=== PATIENT | female | born 1990 | race African-American/Black ===

== ENCOUNTER 2020-04-12 17:36 | Emergency (ER) | payer OTHER, SELFPAY ==
--- NOTE | ~2020-04-12 | XR_ITS ---
EXAMINATION: XR wrist RT min 3V EXAM DATE: 04/12/2020 18:02 INDICATION: Diffuse rt wrist pain s/p bending backwards today . Initial encounter. TECHNIQUE: Right wrist frontal, frontal with ulnar deviation, oblique and lateral projections obtain ed and reviewed. There is no prior study for comparison. FINDINGS: Right wrist scapholunate joint space is maintained. There are no acute fractures or disloca tions identified. There is no subcutaneous gas. The soft tissue is unremarkable. There are no rad iopaque foreign bodies. IMPRESSION: No acute osseous findings. Reviewed, dictated and finalized at location A. IMPRESSION: No acute osseous findings.
[2020-04-12 17:49] VITALS: BP 128/86; PULSE 70; RESP 16; TEMP 36.6; O2SAT 99
[2020-04-12 17:54] VITALS: BP 128/86; PULSE 70; RESP 16; TEMP 36.6; O2SAT 99
--- NOTE | 2020-04-12 18:06 | ED.UPPEXIN ---
HPI - Extremity Injury (Upper) General Chief Complaint: Extremity Injury, Upper Stated Complaint: Right Wrist Pain Time Seen by Provider: 04/12/20 18:00 Source: patient and RN notes reviewed Mode of arrival: ambulatory Limitations: no limitations History of Present Illness HPI narrative: This patient presents today complaining of right wrist pain. She was play wrestling with a sibling this morning and her wrist was bent back. Currently rates her pain 8/10, which increases with movement. Denies numbness or tingling in the wrist or hand. Reports radiation of the pain to the elbow. She has tried no [id number] interventions prior to arrival. MD complaint: injury to: right and wrist Related Data Home Medications Medication Instructions Recorded Confirmed norethindrone-e.estradiol-iron 1 tablet PO DAILY 04/12/20 04/12/20 [Aurovela Fe 1.5/ (28)] Allergies Allergy/AdvReac Type Severity Reaction Status Date / Time No Known Allergies Allergy Verified 04/12/20 17:53 Review of Systems Review of Systems: Narrative: CONSTITUTIONAL: Denies body aches, fever, chills, or sweats. EYES: Denies visual changes, redness, or discharge. ENT: Denies rhinorrhea, congestion, sore throat, or otalgia. CARDIOVASCULAR: Denies chest pain, palpitations, or edema. RESPIRATORY: Denies cough or dyspnea. GASTROINTESTINAL: Denies abdominal pain, nausea, vomiting, or diarrhea. GENITOURINARY: Denies dysuria or hematuria. SKIN: Denies rash, itching, or wounds. MUSCULOSKELETAL: Denies back pain, or myalgia. Right wrist pain NEUROLOGIC: Denies headache, numbness, tingling, or weakness. PSYCH: Denies depression or anxiety. PMFSH Social History Social History Gender identity (if verbalized by the patient): Female Comments At time of signature, I have reviewed and agree with nursing past medical, surgical, social and family history unless otherwise noted. Please see nursing chart for further information. There is no relevant family history pertinent to the presenting complaint Exam Narrative: Exam Narrative: GENERAL: Well-appearing, well-nourished, and in no acute distress. HEAD: Normocephalic, atraumatic. EYES: EOMI. No redness or drainage. Conjunctivae normal. ENT: Mucous membranes pink and moist. NECK: Normal AROM. CHEST: No respiratory distress. EXTREMITIES: Right wrist: Tenderness to the distal radius without ecchymosis, erythema, or edema. Decreased range of motion due to pain. Distal sensation intact. Capillary refill normal. Radial pulse normal. SKIN: Warm, dry, no rash. Capillary refill normal. Normal skin turgor. NEURO: No focal deficits. Alert and oriented x3. Gait steady. PSYCH: Normal affect. No signs of depression or anxiety. Course Vital Signs Vital signs: Vital Signs Temperature 97.8 F 04/12/20 17:49 Pulse Rate 70 04/12/20 17:49 Respiratory Rate 16 04/12/20 17:49 Blood Pressure 128/86 04/12/20 17:49 Pulse Oximetry 99 04/12/20 17:49 Temperature 97.8 F 04/12/20 17:54 Pulse Rate 70 04/12/20 17:54 Respiratory Rate 16 04/12/20 17:54 Blood Pressure 128/86 04/12/20 17:54 Pulse Oximetry 99 04/12/20 17:54 Reviewed. Pt has been instructed to follow up with her PCP regarding her elevated blood pressure today. MDM - Extremity Injury (Upper) Differential Diagnosis Differential diagnosis: Likely sprain and strain of wrist, fracture of wrist and fracture of hand Imaging Data Radiologist's impression: ITS Impressions Wrist X-Ray 04/12/20 18:07 IMPRESSION: No acute osseous findings. Critical Care Time Critical Care Time Critical Care Time: No Discharge Plan Discharge Clinical Impression: Right wrist sprain Qualifiers: Encounter type: initial encounter Qualified Code(s): S63.501A - Unspecified sprain of right wrist, initial encounter Patient Disposition: Home, Self-Care Condition: Stable Instructions: Wrist Sprain (ED) Additional
== END 2020-04-12 18:22 | disposition home or self-care (01) ==
PROVIDERS: Emergency Provider Nurse Practitioner
DX: S63.501A Unspecified sprain of right wrist, initial encounter (principal); X50.9XXA Other and unspecified overexertion or strenuous movements or postures, initial encounter; Y93.83 Activity, rough housing and horseplay; J45.909 Unspecified asthma, uncomplicated; R01.1 Cardiac murmur, unspecified
CPT/HCPCS: 73110; 99213; G0463

== ENCOUNTER 2023-04-08 15:23 | Emergency (ER) | payer OTHER, SELFPAY ==
[2023-04-08 15:31] VITALS: BP 123/67; PULSE 102; RESP 18; TEMP 36.3; O2SAT 98
--- NOTE | 2023-04-08 15:40 | ED.GENADULT ---
HPI - General Adult General Chief complaint: Skin/Abscess/Foreign Body <Tnaya Cadet October, - Last Filed: 04/08/23 15:41> Stated complaint: insect bite to left neck <Tanya Cadet October - Last Filed: 04/08/23 15:41> Time Seen by Provider: 04/08/23 16:12 <Tanya Cadet October, - Last Filed: 04/08/23 15:41> History of Present Illness HPI narrative: Sarina Mckay is a 32 y/o female who presents with reports of maybe a spider bite to her left neck area, she reports area is very itchy, no drainage/ no swelling. Patient also reports she is 22 weeks <Tanya Cadet October, - Last Filed: 04/08/23 15:41> Related Data Home medications: Home Medications Medication Instructions Recorded Confirmed norethindrone 1.5 mg-ethinyl 1 tablet PO DAILY 04/12/20 04/12/20 estradiol 30 mcg(21)/iron 75 mg(7) tablet (Aurovela Fe 1.5/30 (28)) <Tanya Cadet October, - Last Filed: 04/08/23 15:41> Allergies/adverse reactions: Allergies Allergy/AdvReac Type Severity Reaction Status Date / Time No Known Allergies Allergy Verified 04/08/23 15:23 <Tanya Cadet October, - Last Filed: 04/08/23 15:41> PMFSH Social History Social History: Social History Gender identity (if verbalized by the patient): Female <Tanya Cadet October, - Last Filed: 04/08/23 15:41> Exam Narrative: GENERAL: Well-appearing, well-nourished, and in no acute distress. HEAD: Normocephalic, atraumatic. ENT: Mucous membranes moist. NECK: Supple. Shingles rash to the left neck just behind the angle of the mandible. EXTREMITIES: Normal range of motion. No edema. SKIN: Warm, dry, shingles as noted above. No involvement of the ear. NEURO: Alert and oriented x3. PSYCH: Normal mood and affect. <Vipin Warner MD - Last Filed: 04/08/23 16:39> Course Course Emergency Course: Discussed diagnosis and treatment plan with patient. Also discussed case with Dr. Nieves at patient's OB office. Discharged with valacyclovir and prednisone. <Vipin Warner MD - Last Filed: 04/08/23 16:39> Vital Signs Vital signs: Vital Signs Temperature 97.4 F L 04/08/23 15:31 Pulse Rate 102 H 04/08/23 15:31 Respiratory Rate 18 04/08/23 15:31 Blood Pressure 123/67 04/08/23 15:31 Pulse Oximetry 98 04/08/23 15:31 Oxygen Delivery Room Air 04/08/23 15:31 Temperature 97.4 F L 04/08/23 15:31 Pulse Rate 102 H 04/08/23 15:31 Respiratory Rate 18 04/08/23 15:31 Blood Pressure 123/67 04/08/23 15:31 Pulse Oximetry 98 04/08/23 15:31 Oxygen Delivery Room Air 04/08/23 15:31 <Tanya Lambert, [employer] - Last Filed: 04/08/23 15:41> Vital Signs Temperature 97.4 F L 04/08/23 15:31 Pulse Rate 102 H 04/08/23 15:31 Respiratory Rate 18 04/08/23 15:31 Blood Pressure 123/67 04/08/23 15:31 Pulse Oximetry 98 04/08/23 15:31 Oxygen Delivery Room Air 04/08/23 15:31 Temperature 97.4 F L 04/08/23 15:31 Pulse Rate 102 H 04/08/23 15:31 Respiratory Rate 18 04/08/23 15:31 Blood Pressure 123/67 04/08/23 15:31 Pulse Oximetry 98 04/08/23 15:31 Oxygen Delivery Room Air 04/08/23 15:31 <Vipin Warner MD - Last Filed: 04/08/23 16:39> Medical Decision Making Vital Signs Vital Signs: Vital Signs Temperature 97.4 F L 04/08/23 15:31 Pulse Rate 102 H 04/08/23 15:31 Respiratory Rate 18 04/08/23 15:31 Blood Pressure 123/67 04/08/23 15:31 Pulse Oximetry 98 04/08/23 15:31 Oxygen Delivery Room Air 04/08/23 15:31 Temperature 97.4 F L 04/08/23 15:31 Pulse Rate 102 H 04/08/23 15:31 Respiratory Rate 18 04/08/23 15:31 Blood Pressure 123/67 04/08/23 15:31 Pulse Oximetry 98 04/08/23 15:31 Oxygen Delivery Room Air 04/08/23 15:31 <Tanya Lambert, [employer] - Last Filed: 04/08/23 15:41> Vital Signs Temperature 97.4 F L 04/08/23 15:31 Pulse Rate 102 H 04/08/23 15:31 Respiratory Rate 18 04/08/23 15:31 Blood Pressure 123/67
[2023-04-08 16:53] VITALS: BP 127/81; PULSE 89; RESP 16; TEMP 36.8; O2SAT 98
== END 2023-04-08 16:50 | disposition home or self-care (01) ==
LOC: ANHED 16:43
PROVIDERS: Emergency Provider Emergency Medicine
DX: O98.512 Other viral diseases complicating pregnancy, second trimester (principal); Z3A.22 22 weeks gestation of pregnancy
CPT/HCPCS: 99283